=== PATIENT | male | born 1980 | race Hispanic/Latino ===

== ENCOUNTER 2018-09-02 21:49 | Emergency (ER) | payer MEDICAID ==
[2018-09-02] MEDS ORDERED: NACL 0.9% 1000 ML 1,000 ML IV ONE (22:10)
--- NOTE | 2018-09-02 22:11 | Emergency Department Report ---
ED Seizure HPI - General Chief Complaint: Seizure Stated Complaint: SEIZURE Time Seen by Provider: 09/02/18 21:51 Source: patient, EMS Mode of arrival: Stretcher Limitations: Altered Mental Status - History of Present Illness Initial Comments: Patient is a 38-year-old male that presents to the emergency room status post seizure and head injury. Patient sustained a head laceration to the occipital region of his head/scalp. Patient is complaining of headache. Patient states headache is a 2 out of 10. Patient states he has a history of seizure but isn't taking his medications as directed. Patient states that her a lot of stress due to that his mother. Patient denies chest pain shortness of breath. Patient states he was walking down the street and began have a seizure and the next thing he knew He woke up on the ground. Patient states he is bleeding from his head when he woke up. Patient status with this by his friend he was walking. P atient states his friend told him he was unconscious for a few seconds. Patient is answering questions properly. Patient at this time is oriented. MD Complaint: seizure -: Sudden Description of Episode: loss of consciousness, tonic-clonic movement -: second(s) Witnessed:: Yes Trauma: Yes (head lac and head injury) Seizure History: known seizure disorder, compliant with medication Place: street/outdoors Possible Precipitating Event: medication (med change) Associated Symptoms: denies: chest pain, confusion, cough, diaphoresis, fever/chills, loss of appetite, malaise, rash, shortness of breath, syncope, weakness, tongue injury, shoulder dislocation Treatments Prior to Arrival: none - Related Data Allergies Allergy/AdvReac Type Severity Reaction Status Date / Time No Known Allergies Allergy Verified 09/03/18 02:39 ED Review of Systems ROS: Stated complaint: SEIZURE Other details as noted in HPI Constitutional: denies: chills, fever Eyes: denies: eye pain, eye discharge, vision change ENT: denies: ear pain, throat pain Respiratory: denies: cough, shortness of breath, wheezing Cardiovascular: denies: chest pain, palpitations Endocrine: no symptoms reported Gastrointestinal: denies: abdominal pain, nausea, diarrhea Genitourinary: denies: urgency, dysuria Musculoskeletal: denies: back pain, joint swelling, arthralgia Skin: denies: rash, lesions Neurological: headache. denies: weakness, paresthesias Psychiatric: denies: anxiety, depression Hematological/Lymphatic: denies: easy bleeding, easy bruising ED Past Medical Hx - Past Medical History Previous Medical History?: Yes Hx Seizures: Yes - Surgical History Past Surgical History?: Yes Additional Surgical History: Craniotomy - Family History Family history: no significant - Social History Smoking Status: Never Smoker Substance Use Type: None ED Physical Exam - General Limitations: No Limitations General appearance: alert, in no apparent distress - Expanded Head Exam Expanded Head exam: Present: laceration (2.5 cm laceration to the occipital region of the patient's scalp) - Eye Eye exam: Present: normal appearance - ENT ENT exam: Present: mucous membranes moist - Neck Neck exam: Present: normal inspection - Respiratory Respiratory exam: Present: normal lung sounds bilaterally. Absent: respiratory distress - Cardiovascular Cardiovascular Exam: Present: regular rate, normal rhythm. Absent: systolic murmur, diastolic murmur, rubs, gallop - GI/Abdominal GI/Abdominal exam: Present: soft, normal bowel sounds - Rectal Rectal exam: Present: deferred - Extremities Exam Extremities exam: Present: normal inspection - Back Exam Back exam: Present: normal inspection - Neurological Exam Neurological exam: Present: alert, oriented X3 - Psychiatric Psychiatric exam: Present: normal affect, normal mood - Skin Skin exam: Present: warm, dry, normal color. Absent: rash ED Course Vital Signs 09/02/18 09/02/18 09/02/18 22:15 23:00 23:31 Temperature 98.4 F Pulse Rate 71 81 Respiratory 19 35 H Rate Blood Pressure 124/61 129/71 129/71 Blood Pressure 124/61 [Left] O2 Sat by Pulse 95 96 98 Oximetry 09/03/18 09/03/18 00:01 01:01 Temperature Pulse Rate 71 72 Respiratory 16 16 Rate Blood Pressure 110/53 134/65 Blood Pressure [Left] O2 Sat by Pulse 98 99 Oximetry - Reevaluation(s) Reevaluation #1: Patient began to seize again. Patient given 2 mg of Ativan. Patient will be given a gram of Keppra. 09/02/18 23:09 Family Bedside. Patient is asleep at this time. Family states the patient has been under a lot of stress lately. Family believes the patient is taking his medication as prescribed. 09/02/18 23:30 She is awake and alert and oriented 3 at this time. Patient states he is feeling better. Patient denies headache. Patient is not had another seizure. Patient had laceration closed with 5 anton. See procedure note of laceration. 09/03/18 01:20 She isn't improving. Patient is more awake. Patient answering all questions properly. Patient is stable for discharge. Patient will be discharged home in the care of his family. Patient is back to baseline. Patient given discharge instructions. Family given discharge instructions. Both patient and family voiced understanding of instructions. 09/03/18 01:42 - Laceration /Wound Repair Head Wound Location: head Wound Length (cm): 2 Wound's Depth, Shape: superficial Wound Explored: clean Betadine Prep?: Yes Layer Closure?: No Sterile Dressing Applied?: Yes Progress: 2.5 cm laceration noted to the scalp. Estrace was closed with 5 anton. Site was cleaned and draped in a sterile fashion. He tolerated procedure well. Minimal bleeding noted. Sterile dressing applied ED Medical Decision Making - Lab Data Result diagrams: 09/02/18 22:27 09/02/18 22:27 - Radiology Data Radiology results: report reviewed PROCEDURE: CT HEAD/BRAIN WO CON TECHNIQUE: Computerized tomography of the head was performed without contrast material. CT DOSE LENGTH PRODUCT: 920 mGycm HISTORY: Seizure COMPARISONS: None . FINDINGS: Skull and scalp: There has been previous surgery with craniotomy in the left temporal region. . Paranasal sinuses: Normal . Ventricles and subarachnoid spaces: Normal . Cerebrum: No evidence of hemorrhage, acute infarction or mass. Small area of encephalomalacia in the left temporal lobe. . Cerebellum and brainstem: No evidence of hemorrhage, acute infarction or mass . Vasculature: Normal . Other: None . ASPECTS: 10 IMPRESSION: There is no evidence of an acute intracranial process. Previous left temporal craniotomy with small area of encephalomalacia in the left temporal lobe. . - Medical Decision Making Patient is a 38-year-old male that presents emergency room with seizure-like activity. Patient had a seizure in the ER. Patient was given Ativan and Keppra. Patient also complained of a head injury secondary to a fall. Patient sustained a laceration to his scalp. Laceration was closed with anton. See procedure note. Patient is CT of his head which was negative. Patient's labs are unremarkable. Patient will be discharged home. Patient given discharge instructions. Patient to follow up with his neurologist. Patient's family is at the bedside. Patient will be discharged to the care of his family. - Differential Diagnosis sz. head injury. godinez. missed doses. Critical Care Time: Yes Critical care attestation.: If time is entered above; I have spent that time in minutes in the direct care of this critically ill patient, excluding procedure time. Critical Care Time: 35 MINUTES ED Disposition Clinical Impression: Seizure-like activity, Status epilepticus Head injury Qualifiers: Encounter type: initial encounter Qualified Code(s): S09.90XA - Unspecified injury of head, initial encounter Laceration of head Qualifiers: Encounter type: initial encounter Location of open wound of head: scalp Foreign body presence: without foreign body Qualified Code(s): S01.01XA - Laceration without foreign body of scalp, initial encounter Disposition: TO HOME OR SELFCARE Is pt being admited?: No Does the pt Need Aspirin: No Condition: Stable Instructions: Laceration (ED), Epilepsy (ED), Staple Care (ED), Recurrent Seizures Adult (ED) Additional Instructions: Patient to follow up with primary care in 2-3 days. Patient to follow up with neurologist in 2-3 days. Patient to return to ER condition worsens. Patient to have anton removed in 5-7 days. Patient to take Tylenol or ibuprofen when necessary for pain. Patient to take seizure medications as directed by neurologist. Patient to increase water. Patient to avoid activity and driving. Referrals: JULIAN ROMERO MD [Primary Care Provider] - 2-3 Days Time of Disposition: 01:47
[2018-09-02 22:39] LABS: Basophils # (Auto) 0.1 K/mm3 (0.0-0.1); Basophils % (Auto) 0.6 % (0.0-1.8); Eosinophils # (Auto) 0.3 K/mm3 (0.0-0.4); Eosinophils % (Auto) 2.6 % (0.0-4.3); Hematocrit 39.6 % (35.5-45.6); Hemoglobin 12.8 gm/dl (11.8-15.2); Lymphocytes # (Auto) 0.7 K/mm3 (1.2-5.4); Lymphocytes % (Auto) 6.9 % (13.4-35.0); Mean Corpuscular HGB Conc 32 % (32-34); Mean Corpuscular Volume 78 fl (84-94); Monocytes # (Auto) 0.6 K/mm3 (0.0-0.8); Monocytes % (Auto) 5.3 % (0.0-7.3); Platelet Count 196 K/mm3 (140-440); Red Blood Count 5.06 M/mm3 (3.65-5.03)
[2018-09-02 22:58] LABS: Albumin 4.3 g/dL (3.9-5); BUN/Creatinine Ratio 14; Blood Urea Nitrogen 14 mg/dL (9-20); Calcium 8.6 mg/dL (8.4-10.2); Hemolysis Index 113
[2018-09-02 23:01] LABS: Alanine Aminotransferase 18 units/L (7-56)
[2018-09-02] MEDS ORDERED: ATIVAN ONE (23:05)
[2018-09-02] MEDS ORDERED: KEPPRA 1,000 MG/NS 0.75% 100ML 1,000 MG/100 ML BAG IV ONE (23:09)
[2018-09-02] MEDS ORDERED: ATIVAN IV ONE (23:09)
--- NOTE | 2018-09-02 23:19 | Cat Scan Report ---
PROCEDURE: CT HEAD/BRAIN WO CON TECHNIQUE: Computerized tomography of the head was performed without contrast material. CT DOSE LENGTH PRODUCT: 920 mGycm HISTORY: Seizure COMPARISONS: None . FINDINGS: Skull and scalp: There has been previous surgery with craniotomy in the left temporal region. . Paranasal sinuses: Normal . Ventricles and subarachnoid spaces: Normal . Cerebrum: No evidence of hemorrhage, acute infarction or mass. Small area of encephalomalacia in the left temporal lobe. . Cerebellum and brainstem: No evidence of hemorrhage, acute infarction or mass . Vasculature: Normal . Other: None . ASPECTS: 10 IMPRESSION: There is no evidence of an acute intracranial process. Previous left temporal craniotomy with small area of encephalomalacia in the left temporal lobe. . This document is electronically signed by Jasmine Choe DO., September 02 2018 11:17:34 PM ET
[2018-09-03 03:30] VITALS: BP 112/64
== END 2018-09-03 03:31 | disposition home or self-care (01) ==
LOC: ED 21:49
DX: G40.909 Epilepsy, unspecified, not intractable, without status epilepticus (principal); S01.01XA Laceration without foreign body of scalp, initial encounter; W18.30XA Fall on same level, unspecified, initial encounter; Y93.89 Activity, other specified; Y92.89 Other specified places as the place of occurrence of the external cause; Y99.8 Other external cause status
CPT/HCPCS: 12001; 36415; 70450; 80053; 85025; 96365; 96375; 99284; G0480; J1953; J2060; J7030; 80320

== ENCOUNTER 2018-09-12 11:17 | Emergency (ER) | payer MEDICAID ==
--- NOTE | 2018-09-12 11:42 | Emergency Department Report ---
Suture/Staple Removal - [facility] Chief Complaint: Laceration/Recheck/Suture Stated Complaint: ANTON REMOVE Time Seen by Provider: 09/12/18 11:39 When Sutures or Anton Placed: 8-10 Days Ago Wound Location: left back scalp ED Review of Systems ROS: Stated complaint: ANTON REMOVE Other details as noted in HPI Constitutional: denies: chills, fever Eyes: denies: eye pain, eye discharge, vision change ENT: denies: ear pain, throat pain Respiratory: denies: cough, shortness of breath, wheezing Cardiovascular: denies: chest pain, palpitations Endocrine: no symptoms reported Gastrointestinal: denies: abdominal pain, nausea, diarrhea Genitourinary: denies: urgency, dysuria Musculoskeletal: denies: back pain, joint swelling, arthralgia Skin: denies: rash, lesions Neurological: denies: headache, weakness, paresthesias Psychiatric: denies: anxiety, depression Hematological/Lymphatic: denies: easy bleeding, easy bruising ED Past Medical Hx - Past Medical History Hx Seizures: Yes - Surgical History Additional Surgical History: Craniotomy - Social History Smoking Status: Never Smoker Substance Use Type: None Suture Removal Exam - Exam General: Vital signs noted. No distress. Alert and acting appropriately. Wound: No Pathologic Erythema, No Tenderness, No Drainage, No Pus, No Wound Dehiscence Other Systems: All other systems reviewed and are unremarkable. ED Course - Reevaluation(s) Reevaluation #1: 09/12/18 11:40 Patient is speaking in full sentences with no signs of distress noted. ED Recheck MDM - Medical Decision Making Total of 5 anton removed. Patient tolerated well. Patient was instructed to Follow-up with a primary care doctor in 3-5 days or if symptoms worsen and continue return to emergency room as soon as possible. At time of discharge, the patient does not seem toxic or ill in appearance. No acute signs of distr ess noted. Patient agrees to discharge treatment plan of care. No further questions noted by the patient. Critical care attestation.: If time is entered above; I have spent that time in minutes in the direct care of this critically ill patient, excluding procedure time. ED Disposition Clinical Impression: Removal of staple Disposition: TO HOME OR SELFCARE Is pt being admited?: No Does the pt Need Aspirin: No Condition: Stable Additional Instructions: Follow-up with a primary care doctor in 3-5 days or if symptoms worsen and continue return to the emergency department as soon as possible. Referrals: PRIMARY CARE, [Referring] - 3-5 Days JEREMIAS BRUNSON MD [Staff Physician] - 3-5 Days [facility] [place] [Outside] - 3-5 Days
== END 2018-09-12 12:16 | disposition home or self-care (01) ==
LOC: ED 11:17

== ENCOUNTER 2019-04-03 23:42 | Emergency (ER) | payer MEDICAID ==
[2019-04-03] MEDS ORDERED: levETIRAcetam 1000 MG/NS 0.75% 1,000 MG/100 ML BAG IV ONE (23:54)
[2019-04-04 00:35] LABS: Hematocrit 34.5 % (35.5-45.6); Mean Corpuscular HGB Conc 32 % (32-34); Mean Corpuscular Volume 75 fl (84-94); Platelet Count 166 K/mm3 (140-440); Red Blood Count 4.59 M/mm3 (3.65-5.03); Red Cell Distribution Width 16.9 % (13.2-15.2)
[2019-04-04 00:46] LABS: BUN/Creatinine Ratio 12; Blood Urea Nitrogen 14 mg/dL (9-20); Calcium 8.3 mg/dL (8.4-10.2); Hemolysis Index 6
--- NOTE | 2019-04-04 02:04 | Emergency Department Report ---
ED Seizure HPI - General Chief Complaint: Seizure Stated Complaint: SEIZURE Time Seen by Provider: 04/03/19 23:52 Source: EMS Mode of arrival: Stretcher Limitations: Altered Mental Status - History of Present Illness Initial Comments: Patient is a 39-year-old male who is presenting status post 2 seizures at home. Patient does have a seizure disorder and from what we can deduce the patient is just on Topamax at this time. Patient has a history of a traumatic brain injury child has been having seizures since that time. He also has a history of some short-term memory loss at baseline as well. She denies any headache or fevers chills nausea vomiting. He is appropriate and slow to respond to questions. - Related Data Previous Rx's Medication Instructions Recorded Last Taken Type levETIRAcetam [Keppra TAB] 500 mg PO BID #60 tablet 04/04/19 Unknown Rx Allergies Allergy/AdvReac Type Severity Reaction Status Date / Time No Known Allergies Allergy Verified 09/03/18 02:39 ED Review of Systems ROS: Stated complaint: SEIZURE Other details as noted in HPI Comment: All other systems reviewed and negative ED Past Medical Hx - Past Medical History Previous Medical History?: Yes Hx Seizures: Yes - Surgical History Additional Surgical History: Craniotomy - Social History Smoking Status: Current Some Day Smoker - Medications Home Medications: Home Medications Medication Instructions Recorded Confirmed Last Taken Type levETIRAcetam [Keppra TAB] 500 mg PO BID #60 tablet 04/04/19 Unknown Rx ED Physical Exam - General Limitations: Altered Mental Status General appearance: alert, in no apparent distress - Head Head exam: Present: atraumatic, normocephalic - Eye Eye exam: Present: normal appearance - ENT ENT exam: Present: mucous membranes moist - Neck Neck exam: Present: normal inspection - Respiratory Respiratory exam: Present: normal lung sounds bilaterally. Absent: respiratory distress, wheezes, rales, rhonchi, stridor - Cardiovascular Cardiovascular Exam: Present: regular rate, normal rhythm. Absent: systolic murmur, diastolic murmur, rubs, gallop - GI/Abdominal GI/Abdominal exam: Present: soft, normal bowel sounds. Absent: distended, tenderness, guarding, rebound - Rectal Rectal exam: Present: deferred - Extremities Exam Extremities exam: Present: normal inspection - Back Exam Back exam: Present: normal inspection - Neurological Exam Neurological exam: Present: alert, oriented X3, CN II-XII intact. Absent: motor sensory deficit - Psychiatric Psychiatric exam: Present: normal affect, normal mood - Skin Skin exam: Present: warm, dry, intact, normal color. Absent: rash ED Medical Decision Making - Lab Data Result diagrams: 04/03/19 23:58 04/03/19 23:58 - Medical Decision Making Patient was placed in seizure precautions and monitored here in emergency department. Patient was loaded with Keppra and the patient will be discharged home with neurology follow-up. Critical care attestation.: If time is entered above; I have spent that time in minutes in the direct care of this critically ill patient, excluding procedure time. ED Disposition Clinical Impression: Seizure Disposition: DC-01 TO HOME OR SELFCARE Is pt being admited?: No Does the pt Need Aspirin: No Condition: Stable Instructions: Epilepsy (ED) Prescriptions: levETIRAcetam [Keppra TAB] 500 mg PO BID #60 tablet Referrals: JEREMIAS CHAVARRIA MD [Staff Physician] - 3-5 Days Time of Disposition: 02:04
[2019-04-04 02:19] VITALS: BP 117/63
[2019-04-04 02:52] LABS: Basophils % (Manual) 0 % (0.0-1.8); Hypochromasia 1+; Total Cells Counted 100
[2019-04-04 02:53] LABS: Anisocytosis 1+; Large Platelets 1+; Ovalocytes 1+; Platelet Estimate Consistent w Auto
== END 2019-04-04 02:12 | disposition home or self-care (01) ==
LOC: ED 23:42
DX: G43.909 Migraine, unspecified, not intractable, without status migrainosus (principal); F17.200 Nicotine dependence, unspecified, uncomplicated; Z79.899 Other long term (current) drug therapy
CPT/HCPCS: 36415; 80048; 85007; 85025; 96365; 99284; J1953

== ENCOUNTER 2019-05-03 09:22 | Emergency (ER) | payer MEDICAID ==
[2019-05-03 10:40] LABS: BUN/Creatinine Ratio 12; Blood Urea Nitrogen 13 mg/dL (9-20); Calcium 8.2 mg/dL (8.4-10.2); Hemolysis Index 20
[2019-05-03 10:43] LABS: Basophils % (Auto) 0.4 % (0.0-1.8); Eosinophils % (Auto) 0.1 % (0.0-4.3); Hematocrit 35.9 % (35.5-45.6); Hemoglobin 11.1 gm/dl (11.8-15.2); Lymphocytes # (Auto) 0.7 K/mm3 (1.2-5.4); Lymphocytes % (Auto) 8.1 % (13.4-35.0); Mean Corpuscular HGB Conc 31 % (32-34); Mean Corpuscular Volume 75 fl (84-94); Monocytes # (Auto) 0.5 K/mm3 (0.0-0.8); Platelet Count 174 K/mm3 (140-440); Red Blood Count 4.76 M/mm3 (3.65-5.03); Red Cell Distribution Width 16.6 % (13.2-15.2)
[2019-05-03] MEDS ORDERED: levETIRAcetam 1000 MG/NS 0.75% 1,000 MG/100 ML BAG IV ONE (11:40)
[2019-05-03] MEDS ORDERED: ACETAMINOPHEN 325 MG TAB PO ONE (11:41)
--- NOTE | 2019-05-03 12:20 | XRay Report ---
CHEST 1 VIEW 11:44 AM INDICATION / CLINICAL INFORMATION: Hypertension. COMPARISON: None available. FINDINGS: SUPPORT DEVICES: None. HEART / MEDIASTINUM: The heart size and pulmonary vasculature are normal for technique and degree of inspiration. The aorta is normal in caliber. LUNGS / PLEURA: Low lung volumes without acute right lower pleural abnormality. No pneumothorax. ADDITIONAL FINDINGS: No significant additional findings. IMPRESSION: Low lung volumes without other significant abnormality. Signer Name: Enrike Pimentel MD Signed: 05/03/2019 12:15 PM Workstation Name: [id number]
[2019-05-03 12:40] LABS: Bacteria,Urine 1+ /HPF (Negative); Bilirubin,Urine NEG (Negative); Blood,Urine NEG (Negative); Color,Urine Yellow (Yellow); Mucus,Urine FEW /HPF; Protein,Urine <15 mg/dL mg/dL (Negative); Urobilinogen,Urine < 2.0 mg/dL (<2.0)
[2019-05-03 12:44] LABS: Amphetamine Screen,Urine PRESUMPTIVE NEGATIVE; Cannabinoid Screen,Urine PRESUMPTIVE NEGATIVE; Cocaine Screen,Urine PRESUMPTIVE NEGATIVE; Methadone Screen,Urine PRESUMPTIVE NEGATIVE; Opiate Screen,Urine PRESUMPTIVE NEGATIVE
[2019-05-03 13:00] LABS: Benzodiazepines Screen,Urine PRESUMPTIVE POSITIVE
--- NOTE | 2019-05-03 13:42 | Emergency Department Report ---
ED General Adult HPI - General Chief complaint: Seizure Stated complaint: SEIZURE Time Seen by Provider: 05/03/19 09:53 Source: EMS Mode of arrival: Stretcher Limitations: Altered Mental Status - History of Present Illness Initial comments: 89-year-old male with a history of seizures. He apparently had a generalized seizure this morning. He arrives somewhat confused and apparently postictal. Later he was able to tell me that he has frequent breakthrough. He claims to be compliant with his medicine which is Keppra 500 twice a day. He is morbidly obese. He states that he often bites his tongue when he has a seizure and did so today. He denies any other injury. He also states that he has fevers when he has a seizure. At the time of this dictation he has no specific complaints. -: Sudden Location: mouth Severity scale (0 -10): 0 Associated Symptoms: denies other symptoms Treatments Prior to Arrival: none - Related Data Home Medications Medication Instructions Recorded Confirmed Last Taken Lacosamide [Vimpat] 50 mg PO BID 05/03/19 05/03/19 05/02/19 Sertraline [Zoloft] 50 mg PO QHS 05/03/19 05/03/19 05/02/19 Topiramate [Qudexy Xr] 150 mg PO BID 05/03/19 05/03/19 05/02/19 Previous Rx's Medication Instructions Recorded Last Taken Type levETIRAcetam [Keppra TAB] 500 mg PO BID #60 tablet 04/04/19 05/02/19 Rx levETIRAcetam [Keppra TAB] 1,000 mg PO BID #60 tab 05/03/19 Unknown Rx Allergies Allergy/AdvReac Type Severity Reaction Status Date / Time No Known Allergies Allergy Verified 09/03/18 02:39 ED Review of Systems ROS: Stated complaint: SEIZURE Other details as noted in HPI Constitutional: denies: chills, fever Eyes: denies: eye pain, eye discharge, vision change ENT: as per HPI. denies: ear pain, throat pain Respiratory: denies: cough, shortness of breath, wheezing Cardiovascular: denies: chest pain, palpitations Endocrine: no symptoms reported Gastrointestinal: denies: abdominal pain, nausea, diarrhea Genitourinary: denies: urgency, dysuria Musculoskeletal: denies: back pain, joint swelling, arthralgia Skin: denies: rash, lesions Neurological: denies: headache, weakness, paresthesias Psychiatric: denies: anxiety, depression Hematological/Lymphatic: denies: easy bleeding, easy bruising ED Past Medical Hx - Past Medical History Previous Medical History?: Yes Hx Seizures: Yes - Surgical History Past Surgical History?: Yes Additional Surgical History: Craniotomy - Social History Smoking Status: Unknown if ever smoked - Medications Home Medications: Home Medications Medication Instructions Recorded Confirmed Last Taken Type levETIRAcetam [Keppra TAB] 500 mg PO BID #60 tablet 04/04/19 05/03/19 05/02/19 Rx Lacosamide [Vimpat] 50 mg PO BID 05/03/19 05/03/19 05/02/19 History Sertraline [Zoloft] 50 mg PO QHS 05/03/19 05/03/19 05/02/19 History Topiramate [Qudexy Xr] 150 mg PO BID 05/03/19 05/03/19 05/02/19 History levETIRAcetam [Keppra TAB] 1,000 mg PO BID #60 tab 05/03/19 Unknown Rx ED Physical Exam - General Limitations: Other (initially post ictal now awake alert and oriented 4) General appearance: alert, in no apparent distress, obese - Head Head exam: Present: atraumatic, normocephalic - Eye Eye exam: Present: normal appearance, PERRL, EOMI. Absent: scleral icterus - ENT ENT exam: Present: mucous membranes moist, other (superficial tongue abrasion) - Neck Neck exam: Present: normal inspection. Absent: tenderness, meningismus - Respiratory Respiratory exam: Present: normal lung sounds bilaterally. Absent: respiratory distress - Cardiovascular Cardiovascular Exam: Present: regular rate, normal rhythm. Absent: systolic murmur, diastolic murmur, rubs, gallop - GI/Abdominal GI/Abdominal exam: Present: soft, normal bowel sounds. Absent: distended, tenderness, guarding, rebound, rigid - Rectal Rectal exam: Present: deferred - Extremities Exam Extremities exam: Present: normal inspection. Absent: calf tenderness - Back Exam Back exam: Present: normal inspection. Absent: CVA tenderness (L), rash noted - Neurological Exam Neurological exam: Present: alert, oriented X3, CN II-XII intact. Absent: motor sensory deficit - Psychiatric Psychiatric exam: Present: normal affect, normal mood - Skin Skin exam: Present: warm, dry, intact, normal color. Absent: rash ED Course Vital Signs 05/03/19 05/03/19 05/03/19 09:46 11:00 11:25 Temperature 99.9 F H 101.1 F H Pulse Rate 85 78 Respiratory 16 16 Rate Blood Pressure 116/47 Blood Pressure 118/64 [Right] O2 Sat by Pulse 98 100 Oximetry 05/03/19 05/03/19 12:30 12:59 Temperature 100 F H Pulse Rate 81 Respiratory 16 Rate Blood Pressure Blood Pressure 111/58 [Right] O2 Sat by Pulse 100 Oximetry - Reevaluation(s) Reevaluation #1: The patient recovered to his baseline. He had a low-grade fever. He was fairly adamant that this happens to him after his seizures. However we checked a chest x-ray and a urinalysis which did not suggest a focus of infection. He looked well on reexam. He is appropriate for outpatient management. I will move his Keppra up to a gram twice a day. He does need follow-up with a neurologist. 05/03/19 13:41 ED Medical Decision Making - Lab Data Result diagrams: 05/03/19 10:00 05/03/19 10:00 Laboratory Results - last 24 hr 05/03/19 05/03/19 05/03/19 10:00 10:00 12:00 WBC 8.1 RBC 4.76 Hgb 11.1 L Hct 35.9 MCV 75 L MCH 23 L MCHC 31 L RDW 16.6 H Plt Count 174 Lymph % (Auto) 8.1 L [place] % (Auto) 6.0 Eos % (Auto) 0.1 Baso % (Auto) 0.4 Lymph # 0.7 L [place] # 0.5 Eos # 0.0 Baso # 0.0 Seg Neutrophils % 85.4 H Seg Neutrophils # 6.9 Sodium 137 Potassium 4.1 Chloride 108.0 H Carbon Dioxide 17 L Anion Gap 16 BUN 13 Creatinine 1.1 Estimated GFR > 60 BUN/Creatinine Ratio 12 Glucose 124 H Calcium 8.2 L Urine Color Yellow Urine Turbidity Clear Urine pH 7.0 Ur Specific [place] 1.018 Urine Protein <15 mg/dl Urine Glucose (UA) Neg Urine Ketones Neg Urine Blood Neg Urine Nitrite Neg Urine Bilirubin Neg Urine Urobilinogen < 2.0 Ur Leukocyte Esterase Neg Urine WBC (Auto) 1.0 Urine RBC (Auto) 1.0 U Epithel Cells (Auto) < 1.0 Urine Bacteria (Auto) 1+ Urine Mucus Few Urine Opiates Screen Urine Methadone Screen Ur Barbiturates Screen Ur Phencyclidine Scrn Ur Amphetamines Screen U Benzodiazepines Scrn Urine Cocaine Screen U Marijuana (THC) Screen Drugs of Abuse Note 05/03/19 12:00 WBC RBC Hgb Hct MCV MCH MCHC RDW Plt Count Lymph % (Auto) [place] % (Auto) Eos % (Auto) Baso % (Auto) Lymph # [place] # Eos # Baso # Seg Neutrophils % Seg Neutrophils # Sodium Potassium Chloride Carbon Dioxide Anion Gap BUN Creatinine Estimated GFR BUN/Creatinine Ratio Glucose Calcium Urine Color Urine Turbidity Urine pH Ur Specific [place] Urine Protein Urine Glucose (UA) Urine Ketones Urine Blood Urine Nitrite Urine Bilirubin Urine Urobilinogen Ur Leukocyte Esterase Urine WBC (Auto) Urine RBC (Auto) U Epithel Cells (Auto) Urine Bacteria (Auto) Urine Mucus Urine Opiates Screen Presumptive negative Urine Methadone Screen Presumptive negative Ur Barbiturates Screen Presumptive negative Ur Phencyclidine Scrn Presumptive negative Ur Amphetamines Screen Presumptive negative U Benzodiazepines Scrn Presumptive positive Urine Cocaine Screen Presumptive negative U Marijuana (THC) Screen Presumptive negative Drugs of Abuse Note Disclamer Critical care attestation.: If time is entered above; I have spent that time in minutes in the direct care of this critically ill patient, excluding procedure time. ED Disposition Clinical Impression: Seizure, Seizure disorder, Low grade fever Disposition: DC- TO HOME OR SELFCARE Is pt being admited?: No Does the pt Need Aspirin: No Condition: Stable Instructions: Epilepsy (ED), Fever in Adults (ED) Additional Instructions: Return to the emergency department any acute change or problem. I'm going to increase her Keppra dose to 1 g twice a day. That is presenting that you are on 500 mg twice a day. Check your bottles. Follow-up with the primary care provi ruel and neurologist. See referrals if you need them. Prescriptions: levETIRAcetam [Keppra TAB] 1,000 mg PO BID #60 tab Referrals: PRIMARY CAREMD [Primary Care Provider] - 3-5 Days KALANI ROSSI MD [Staff Physician] - 3-5 Days [facility] [Provider Group] - 2-3 Days Time of Disposition: 13:43
[2019-05-03 18:19] VITALS: BP 119/42
== END 2019-05-03 20:01 | disposition home or self-care (01) ==
LOC: ED 09:22
DX: G40.909 Epilepsy, unspecified, not intractable, without status epilepticus (principal); Z79.899 Other long term (current) drug therapy
CPT/HCPCS: 36415; 71045; 80048; 80307; 81001; 85025; 96374; 99285; J1953

== ENCOUNTER 2020-04-03 23:29 | Emergency (ER) | payer MEDICAID ==
[2020-04-04 04:01] VITALS: BP 155/86
== END 2020-04-04 05:00 | disposition left against medical advice (07) ==
LOC: ED 23:29
DX: R56.9 Unspecified convulsions (principal); Z53.21 Procedure and treatment not carried out due to patient leaving prior to being seen by health care provider

== ENCOUNTER 2020-12-05 19:37 | Emergency (ER) | payer MEDICARE ==
[2020-12-05] MEDS ORDERED: levETIRAcetam 500 MG TAB PO ONE (20:19)
[2020-12-05] MEDS ORDERED: LORazepam 1 MG TAB PO ONE (20:19)
--- NOTE | 2020-12-05 20:37 | Emergency Department Report ---
ED General Adult HPI - General Chief complaint: Seizure Stated complaint: SEIZURE Time Seen by Provider: 12/05/20 20:18 Source: EMS Mode of arrival: Stretcher Limitations: Other - History of Present Illness Initial comments: The patient presents to the emergency department the chief complaint of seizure activity. Patient has a history of seizures and had 3 seizures today. Patient complains of mild headache but otherwise states he feels better. Patient states he takes seizure medications at home but is difficult to obtain whether he is compliant with medication use or not. Patient has no other complaints. -: Sudden Severity scale (0 -10): 1 Consistency: now resolved Improves with: none Worsens with: none Associated Symptoms: denies other symptoms Treatments Prior to Arrival: none - Related Data Home Medications Medication Instructions Recorded Confirmed Last Taken Lacosamide [Vimpat] 50 mg PO BID 05/03/19 05/03/19 05/02/19 Sertraline [Zoloft] 50 mg PO QHS 05/03/19 05/03/19 05/02/19 Topiramate [Qudexy Xr] 150 mg PO BID 05/03/19 05/03/19 05/02/19 Previous Rx's Medication Instructions Recorded Last Taken Type levETIRAcetam [Keppra TAB] 500 mg PO BID #60 tablet 04/04/19 05/02/19 Rx levETIRAcetam [Keppra TAB] 1,000 mg PO BID #60 tab 05/03/19 Unknown Rx levETIRAcetam [Keppra TAB] 500 mg PO BID #60 tablet 12/05/20 Unknown Rx Allergies Allergy/AdvReac Type Severity Reaction Status Date / Time No Known Allergies Allergy Verified 09/03/18 02:39 ED Review of Systems ROS: Stated complaint: SEIZURE Other details as noted in HPI Constitutional: denies: chills, fever Eyes: denies: eye pain, eye discharge, vision change ENT: denies: ear pain, throat pain Respiratory: denies: cough, shortness of breath, wheezing Cardiovascular: denies: chest pain, palpitations Endocrine: no symptoms reported Gastrointestinal: denies: abdominal pain, nausea, diarrhea Genitourinary: denies: urgency, dysuria Musculoskeletal: denies: back pain, joint swelling, arthralgia Skin: denies: rash, lesions Neurological: denies: headache, weakness, paresthesias Psychiatric: denies: anxiety, depression Hematological/Lymphatic: denies: easy bleeding, easy bruising ED Past Medical Hx - Past Medical History Previous Medical History?: Yes Hx Seizures: Yes - Surgical History Past Surgical History?: Yes Additional Surgical History: Craniotomy - Social History Smoking Status: Unknown if ever smoked Substance Use Type: None - Medications Home Medications: Home Medications Medication Instructions Recorded Confirmed Last Taken Type levETIRAcetam [Keppra TAB] 500 mg PO BID #60 tablet 04/04/19 05/03/19 05/02/19 Rx Lacosamide [Vimpat] 50 mg PO BID 05/03/19 05/03/19 05/02/19 History Sertraline [Zoloft] 50 mg PO QHS 05/03/19 05/03/19 05/02/19 History Topiramate [Qudexy Xr] 150 mg PO BID 05/03/19 05/03/19 05/02/19 History levETIRAcetam [Keppra TAB] 1,000 mg PO BID #60 tab 05/03/19 Unknown Rx levETIRAcetam [Keppra TAB] 500 mg PO BID #60 tablet 12/05/20 Unknown Rx ED Physical Exam - General Limitations: Other General appearance: alert, in no apparent distress - Head Head exam: Present: atraumatic, normocephalic - Eye Eye exam: Present: normal appearance, PERRL - ENT ENT exam: Present: mucous membranes moist - Neck Neck exam: Present: normal inspection - Respiratory Respiratory exam: Present: normal lung sounds bilaterally. Absent: respiratory distress - Cardiovascular Cardiovascular Exam: Present: regular rate, normal rhythm. Absent: systolic murmur, diastolic murmur, rubs, gallop - GI/Abdominal GI/Abdominal exam: Present: soft, normal bowel sounds. Absent: distended, tenderness - Rectal Rectal exam: Present: deferred - Extremities Exam Extremities exam: Present: normal inspection - Back Exam Back exam: Present: normal inspection - Neurological Exam Neurological exam: Present: alert, oriented X3, CN II-XII intact. Absent: motor sensory deficit - Psychiatric Psychiatric exam: Present: normal affect, normal mood - Skin Skin exam: Present: warm, dry, intact, normal color. Absent: rash ED Medical Decision Making - Medical Decision Making Patient given p.o. Ativan and Keppra Critical care attestation.: If time is entered above; I have spent that time in minutes in the direct care of this critically ill patient, excluding procedure time. ED Disposition Clinical Impression: Seizure Disposition: DC-01 TO HOME OR SELFCARE Is pt being admited?: No Does the pt Need Aspirin: No Condition: Stable Instructions: Seizure, Adult Additional Instructions: Return if worse Prescriptions: levETIRAcetam [Keppra TAB] 500 mg PO BID #60 tablet Referrals: TIARA PARHAM MD [Staff Physician] - 3-5 Days Time of Disposition: 21:33
[2020-12-05 21:54] VITALS: BP 122/74
== END 2020-12-05 22:02 | disposition home or self-care (01) ==
LOC: ED 19:37
DX: R56.9 Unspecified convulsions (principal); Z79.899 Other long term (current) drug therapy

== ENCOUNTER 2020-12-08 10:04 | Emergency (ER) | payer MEDICARE ==
[2020-12-08 10:15] VITALS: BP 177/78
--- NOTE | 2020-12-08 11:59 | Event Note ---
ED Screening Note Date of service: 12/08/20 Time: 11:55 ED Screening Note: 40 y/o male pt with history of epilepsy and craniotomy presents to emergency department via EMS with complaints of seizures. He cannot recall exactly when his last seizure took place but thinks he may have had one in his sleep last night. He takes Keppra and states he has been compliant with his medication regimen. He also complains of numbness throughout his body. States he donates blood frequently but has never been diagnosed with anemia. Also complains of "problems with his veins," which he describes as a "tickling" sensation. No recent fall, trauma, or injury. Hypertensive in triage. General: Awake, appropriately interactive, no acute distress. Neck: Supple. Full range of motion intact. Cardiovascular: Normal peripheral perfusion. Pulmonary: No respiratory distress. Patient is speaking normally without use of accessory muscles. Skin: No apparent rashes or lesions. Neurological: No facial asymmetry. Speech is clear. Follows commands. Patient is alert and oriented. Musculoskeletal: Moves all four extremities spontaneously with normal range of motion. Psych: Cooperative. Odd affect. I have greeted and performed a focused rapid initial assessment of this patient. A comprehensive ED assessment and evaluation of the patient, analysis of all test results, and completion of the medical decision-making process will be conducted by additional ED providers. This initial assessment/diagnostic orders/clinical plan/treatment(s) is/are subject to change based on patients health status, clinical progression and re-assessment. Further treatment and workup at subsequent clinical provider's discretion. Patient/guardian urged not to elope from the ED as their condition may be serious if not clinically assessed and managed.
[2020-12-08 12:46] LABS: Basophils % (Auto) 0.7 % (0.0-1.8); Eosinophils % (Auto) 0.7 % (0.0-4.3); Hematocrit 40.3 % (35.5-45.6); Hemoglobin 13.4 gm/dl (11.8-15.2); Lymphocytes % (Auto) 16.8 % (13.4-35.0); Mean Corpuscular HGB Conc 33 % (32-34); Mean Corpuscular Volume 81 fl (84-94); Monocytes # (Auto) 0.3 K/mm3 (0.0-0.8); Monocytes % (Auto) 5.7 % (0.0-7.3); Platelet Count 160 K/mm3 (140-440); Red Blood Count 4.95 M/mm3 (3.65-5.03); Red Cell Distribution Width 15.4 % (13.2-15.2)
[2020-12-08 12:57] LABS: Alanine Aminotransferase 15 units/L (7-56); Albumin 4.5 g/dL (3.9-5); BUN/Creatinine Ratio 12; Blood Urea Nitrogen 11 mg/dL (9-20); Calcium 8.7 mg/dL (8.4-10.2); Hemolysis Index 3
[2020-12-08] MEDS ORDERED: POTASSIUM CHLORIDE ER 20 MEQ TAB PO ONE (14:33)
--- NOTE | 2020-12-08 14:33 | Emergency Department Report ---
HPI - General Chief Complaint: Medical Clearance Time Seen by Provider: 12/08/20 14:17 - HPI HPI: 40-year-old male with history of prior craniotomy and epilepsy on Keppra and Topamax brought in by EMS with initial complaint of difficulty sleeping. The pa bri was unable to communicate his concerns to triage. When I spoke with the patient he had difficulty focusing on answering my questions. He stated that he has been having a seizure for the past 2 days. When asked why he believes he has been having a seizure, however, he is unable to explain. He says that he has numbness which he attributes to anemia, and comments on the fact that his family does not believe that his symptoms are real and thinks he is faking. He says he is taking all of his prescribed medications. On further questioning, he admits to auditory hallucinations consisting of the voices of former family members speaking to him. He is unable to explain what these voices have told him. However, he denies SI/HI. When asked what symptoms the patient is experiencing now, he is unable to answer. He denies experiencing any vision changes, neck problems, fever/chills, cough, shortness of breath, chest pain, abdominal pain, nausea/vomiting. He also denies experiencing any convulsions or unilateral symptoms. He says he may have hit his head while he was cutting grass 2 days ago but is unsure. Further details of the HPI are limited due to the patient's clinical condition. At 3:10 PM, I spoke with the patient's sister and sales representative facility services, Pinky Mohamud at [phone]. She provides further history. She states that 3 days ago the patient was cutting grass when she noticed that he was standing up not moving or responding for a few minutes. It was thought that he was having a seizure and he was brought to the emergency department where he was seen and later discha rged the same day. She states that for the past 2-1/2 years, really ever since the of their mom the nature of his seizures have changed and that when he has a seizure he has several several days of confusion and memory difficulties after this. She says that is what he has been experiencing for the past few days and that this is not atypical for his seizures. She also says that last night he admitted to her that he has been faking seizures for the past 2 days. She says that although this abnormal memory issue has been occurring after his seizures for the past 2-1/2 years, she is concerned about his mental/psychiatric state. ED Past Medical Hx - Past Medical History Previous Medical History?: Yes Hx Seizures: Yes Additional medical history: morbid obessity - Surgical History Past Surgical History?: Yes Additional Surgical History: Craniotomy - Social History Smoking Status: Never Smoker Substance Use Type: Alcohol - Medications Home Medications: Home Medications Medication Instructions Recorded Confirmed Last Taken Type levETIRAcetam [Keppra TAB] 500 mg PO BID #60 tablet 04/04/19 05/03/19 05/02/19 Rx Lacosamide [Vimpat] 50 mg PO BID 05/03/19 05/03/19 05/02/19 History Sertraline [Zoloft] 50 mg PO QHS 05/03/19 05/03/19 05/02/19 History Topiramate [Qudexy Xr] 150 mg PO BID 05/03/19 05/03/19 05/02/19 History levETIRAcetam [Keppra TAB] 1,000 mg PO BID #60 tab 05/03/19 Unknown Rx levETIRAcetam [Keppra TAB] 500 mg PO BID #60 tablet 12/05/20 Unknown Rx ED Review of Systems ROS: Stated complaint: EPILEPSY Other details as noted in HPI Constitutional: denies: chills, fever Eyes: denies: vision change ENT: denies: throat pain, congestion Respiratory: denies: cough, shortness of breath Cardiovascular: denies: chest pain, palpitations Gastrointestinal: denies: abdominal pain, nausea, vomiting Genitourinary: denies: dysuria Musculoskeletal: denies: back pain Skin: denies: rash Neurological: numbness (unclear where). denies: headache, weakness Psychiatric: auditory hallucinations. denies: visual hallucinations, homicidal thoughts, suicidal thoughts Physical Exam - Physical Exam Vital Signs: Vital Signs 12/08/20 10:10 Temperature 98.9 F Pulse Rate 67 Respiratory 24 Rate Blood Pressure 177/78 O2 Sat by Pulse 99 Oximetry General: GENERAL: Well developed and well nourished. No acute distress HEENT: Normocephalic. No obvious signs of trauma. Moist mucous membranes. EYES: Extraocular movements are intact. Pupils are equal round and reactive to light bilaterally NECK: Supple. Trachea is midline. LUNGS: Nonlabored breathing. Equal chest rise bilaterally. Clear to auscultation bilaterally. HEART/CARDIOVASCULAR: Regular rate and rhythm. No murmurs or rubs. ABDOMEN: Abdomen is soft and nondistended. Normal bowel sounds. There is no significant tenderness, guarding or rebound. SKIN: Skin is warm and dry NEURO: Patient is awake, alert, and oriented. field account manager II-XII grossly intact. No focal deficits. Normal motor and sensory exam throughout. Normal speech. Normal gait. MUSCULOSKELETAL: No obvious deformities. No significant tenderness. Normal ROM throughout. BACK/SPINE: No midline tenderness or step-offs of the C/T/L spine. ED Course Vital Signs 12/08/20 10:10 Temperature 98.9 F Pulse Rate 67 Respiratory 24 Rate Blood Pressure 177/78 O2 Sat by Pulse 99 Oximetry ED Medical Decision Making - Lab Data Result diagrams: 12/08/20 12:13 12/08/20 12:13 Laboratory Results - last 24 hr 12/08/20 12/08/20 12/08/20 12:13 12:13 12:13 WBC 6.1 RBC 4.95 Hgb 13.4 Hct 40.3 MCV 81 L MCH 27 L MCHC 33 RDW 15.4 H Plt Count 160 Lymph % (Auto) 16.8 Perry % (Auto) 5.7 Eos % (Auto) 0.7 Baso % (Auto) 0.7 Lymph # (Auto) 1.0 L Perry # (Auto) 0.3 Eos # (Auto) 0.0 Baso # (Auto) 0.0 Seg Neutrophils % 76.1 H Seg Neutrophils # 4.6 Sodium 140 Potassium 3.2 L Chloride 106.3 Carbon Dioxide 23 Anion Gap 14 BUN 11 Creatinine 0.9 Estimated GFR > 60 BUN/Creatinine Ratio 12 Glucose 115 H Calcium 8.7 Magnesium 1.80 Total Bilirubin 0.40 AST 14 ALT 15 Alkaline Phosphatase 112 Total Protein 7.4 Albumin 4.5 Albumin/Globulin Ratio 1.6 Salicylates 0.3 L Acetaminophen Plasma/Serum Alcohol 12/08/20 12/08/20 12:13 12:13 WBC RBC Hgb Hct MCV MCH MCHC RDW Plt Count Lymph % (Auto) Perry % (Auto) Eos % (Auto) Baso % (Auto) Lymph # (Auto) Perry # (Auto) Eos # (Auto) Baso # (Auto) Seg Neutrophils % Seg Neutrophils # Sodium Potassium Chloride Carbon Dioxide Anion Gap BUN Creatinine Estimated GFR BUN/Creatinine Ratio Glucose Calcium Magnesium Total Bilirubin AST ALT Alkaline Phosphatase Total Protein Albumin Albumin/Globulin Ratio Salicylates Acetaminophen 5.0 L Plasma/Serum Alcohol < 0.01 - Radiology Data CT HEAD WITHOUT CONTRAST INDICATION: Headache, head trauma. TECHNIQUE: All CT scans at this location are performed using CT dose reduction for ALARA by means of automated exposure control. COMPARISON: CT 09/02/2018 FINDINGS: HEMORRHAGE: None. EXTRA-AXIAL SPACES: There are prominent extra-axial spaces of the convexity consistent with atrophy. This is unchanged. VENTRICULAR SYSTEM: Normal in size and morphology for the patient's age. BRAIN PARENCHYMA: Encephalomalacia is again seen within the anterior pole of the left temporal lobe. Atrophic changes are noted. These are advanced for the patient's age but unchanged. MIDLINE SHIFT OR HERNIATION: None. ORBITS: Normal as visualized. SOFT TISSUES OF HEAD: Normal. CALVARIUM: Normal. VISUALIZED PARANASAL SINUSES AND MASTOID AIR CELLS: Clear. ADDITIONAL FINDINGS: None. IMPRESSION: 1. No acute intracranial abnormality. Signer Name: Jered Jerry MD Signed: 12/08/2020 2:24 PM Workstation Name: [id number] - Medical Decision Making 40-year-old male with history of seizures brought in by EMS for unclear reasons, although the initial complaint was lack of sleep. There was difficulty o btaining the patient's chief complaint in triage. To me, the patient states that he believes he has been having a seizure for the past 2 days but is unable to explain why. He denies experiencing any convulsions which are typical of his seizures. He says that he has been compliant with his seizure medications. Although at one point the patient said he was experiencing numbness attributed to anemia, on physical exam his sensation is intact throughout. He has a nonfocal neurologic exam. Nonetheless he does endorse auditory hallucinations in the form of past family members. Although the patient mentions that he may have hit his head on a lawnmower 2 days ago, there are no signs of trauma. Nonetheless we will send medical clearance labs, EKG, and CT of the head to assess/rule out evidence of intracranial bleeding and/or other intracranial abnormality. Given the auditory hallucinations and lack of clear reasons for presentation, I am highly suspicious for psychiatric origin of his symptoms and we will therefore consult mental health. Labs reviewed and show no significant abnormalities other than mild hypokalemia. [address] of the head shows pre-existing left temporal encephalomalacia which has not changed from prior. He is therefore medically cleared, but we will await mental health assessment/recommendations. The mental health devops consultant has completed their evaluation and does not feel that his auditory hallucinations require further inpatient psychiatric treatment. Outpatient resources have been provided. The patient will need to follow-up with his neurologist, Dr. Mcfadden as soon as possible to discuss the ongoing symptoms he has been having after seizures. This was explained to the patient who expressed understanding. He will be discharged to the care of his sister who is his sales representative facility services. Critical care attestation.: If time is entered above; I have spent that time in minutes in the direct care of this critically ill patient, excluding procedure time. ED Disposition Clinical Impression: Auditory hallucination, Memory change, Seizure Disposition: DC-01 TO HOME OR SELFCARE Is pt being admited?: No Condition: Stable Instructions: Epilepsy, Psychosis, Seizure, Adult, [id number] Referrals: Haris Porter [Other] - BETY CHAO MD [Primary Care Provider] - 2-3 Days
--- NOTE | 2020-12-08 15:28 | Cat Scan Report ---
CT HEAD WITHOUT CONTRAST INDICATION: Headache, head trauma. TECHNIQUE: All CT scans at this location are performed using CT dose reduction for ALARA by means of automated e xposure control. COMPARISON: CT 09/02/2018 FINDINGS: HEMORRHAGE: None. EXTRA-AXIAL SPACES: There are prominent extra-axial spaces of the convexity consistent with atrophy. This is unchanged. VENTRICULAR SYSTEM: Normal in size and morphology for the patient's age. BRAIN PARENCHYMA: Encephalomalacia is again seen within the anterior pole of the left temporal lobe. Atrophic changes are noted. These are advanced for the patient's age but unchanged. MIDLINE SHIFT OR HERNIATION: None. ORBITS: Normal as visualized. SOFT TISSUES OF HEAD: Normal. CALVARIUM: Normal. VISUALIZED PARANASAL SINUSES AND MASTOID AIR CELLS: Clear. ADDITIONAL FINDINGS: None. IMPRESSION: 1. No acute intracranial abnormality. Signer Name: Jered Jerry MD Signed: 12/08/2020 3:24 PM Workstation Name: [id number]
== END 2020-12-09 00:09 | disposition home or self-care (01) ==
LOC: ED 10:04
DX: R56.9 Unspecified convulsions (principal); R41.82 Altered mental status, unspecified; R44.0 Auditory hallucinations; Z98.890 Other specified postprocedural states; Z79.899 Other long term (current) drug therapy
CPT/HCPCS: 36415; 70450; 80053; 80320; 83735; 85025; G0480